=== PATIENT | female | born 1980 | race Caucasian/White ===

== ENCOUNTER 2021-11-07 10:35 | Emergency (ER) | payer SELFPAY ==
[~2021-11-07] VITALS: Ht 160 cm; Wt 97.5 kg
[2021-11-07] MEDS ORDERED: CLONIDINE HCL 0.3 MG TAB PO ONE (11:15)
[2021-11-07 11:28] LABS: BASOPHILS # (AUTO) 0.1 (0.0-0.1); BASOPHILS % 0.6 % (0.0-1.0); EOSINOPHILS # (AUTO) 0.2 (0.0-0.4); EOSINOPHILS % 1.6 % (0.0-6.0); HEMATOCRIT 45.8 % (34.2-44.1); LYMPHOCYTES % 21.5 % (18.0-39.1); MEAN CORPUSCULAR HGB CONC 32.8 g/dL (31-35); MEAN CORPUSCULAR VOLUME 85.6 fL (81-99); MONOCYTES # (AUTO) 0.8 (0.2-0.8); NEUTROPHILS # (AUTO) 9.9 (2.1-6.9); PLATELET COUNT 361 x10e3/uL (140-360); RED BLOOD COUNT 5.35 x10e6/uL (3.6-5.1)
[2021-11-07] MEDS ORDERED: HYDRALAZINE HCL 20 MG/ML VIAL IV ONE (11:30)
[2021-11-07 12:21] LABS: ALBUMIN 3.9 g/dL (3.5-5.0); ANION GAP 14.3 mmol/L (8-16); CALCIUM 9.5 mg/dL (8.4-10.2); CREATININE, SERUM 0.82 mg/dL (0.57-1.11); POTASSIUM 3.3 mmol/L (3.5-5.1)
[2021-11-07] MEDS ORDERED: LISINOPRIL10 MG PO (13:19)
[2021-11-07 13:29] VITALS: BP 186/94
== END 2021-11-07 13:36 | disposition home or self-care (01) ==
LOC: ER 10:42
DX: R07.9 Chest pain, unspecified (principal); E11.65 Type 2 diabetes mellitus with hyperglycemia; I10 Essential (primary) hypertension; Z85.42 Personal history of malignant neoplasm of other parts of uterus; F17.210 Nicotine dependence, cigarettes, uncomplicated
CPT/HCPCS: 36415; 71045; 80053; 84484; 85025; 93005; 99284; J0360

== ENCOUNTER 2024-12-26 01:56 | Inpatient (IN) | payer BC ==
[2024-12-26] VITALS (17 sets, daily range): BP systolic 106–155; BP diastolic 54–92; PULSE 80–112; RESP 9–21; TEMP 97.8–98.1; O2SAT 92–100
[~2024-12-26] VITALS: Ht 160 cm; Wt 84.5 kg
[~2024-12-26 01:56] MED LIST: LISINOPRIL10 MG PO
[2024-12-26] MEDS: ONDANSETRON HCL INJ 2MG/ML 2ML 2 MG/ML VIAL IV STA (02:40)
[2024-12-26] MEDS: KETOROLAC TROMETHAMINE 30 MG/ML VIAL IV STA ×2 (02:40→06:30)
[2024-12-26] MEDS: SODIUM CHLORIDE 0.9% 1000ML 1,000 ML IV STA (02:41)
[2024-12-26 02:56] LABS: BASOPHILS % 0.3 % (0.0-1.0); EOSINOPHILS # (AUTO) 0.1 (0.0-0.4); EOSINOPHILS % 0.9 % (0.0-6.0); HEMATOCRIT 36.4 % (34.2-44.1); HEMOGLOBIN 12.8 g/dL (12.0-16.0); LYMPHOCYTES # (AUTO) 1.5 (1.0-3.2); LYMPHOCYTES % 12.8 % (18.0-39.1); MEAN CORPUSCULAR HEMOGLOBIN 29.6 pg (28-32); MEAN CORPUSCULAR HGB CONC 35.2 g/dL (31-35); MEAN CORPUSCULAR VOLUME 84.1 fL (81-99); MONOCYTES # (AUTO) 0.7 (0.2-0.8); MONOCYTES % 5.9 % (4.4-11.3); NEUTROPHILS # (AUTO) 9.4 (2.1-6.9); NEUTROPHILS % 79.8 % (38.7-80.0); PLATELET COUNT 301 x10e3/uL (140-360); RED BLOOD COUNT 4.33 x10e6/uL (3.6-5.1); RED CELL DISTRIBUTION WIDTH 12.3 % (11.7-14.4); WHITE BLOOD COUNT 11.74 x10e3/uL (4.8-10.8)
[2024-12-26 02:58] LABS: BILIRUBIN,URINE NEGATIVE (NEGATIVE); CLARITY,URINE CLOUDY (CLEAR); COLOR,URINE YELLOW (YELLOW); GLUCOSE, URINE NEGATIVE (NEGATIVE); KETONES,URINE NEGATIVE (NEGATIVE); LEUKOCYTE ESTERASE ,URINE NEGATIVE (NEGATIVE); NITRITE,URINE NEGATIVE (NEGATIVE); PH,URINE 7.5 (5 - 7); PREGNANCY TEST, URINE NEGATIVE (NEGATIVE); PROTEIN,URINE DIPSTICK 1+ (NEGATIVE); URINE UROBILINOGEN 0.2 mg/dL (0.2 - 1)
[2024-12-26 03:15] LABS: BACTERIA,URINE MANY /HPF
[2024-12-26 03:16] LABS: EPITHELIAL CELLS,URINE MANY /LPF
[2024-12-26 03:19] LABS: ALBUMIN 3.8 g/dL (3.5-5.0); ALBUMIN/GLOBULIN RATIO 1.2 (0.8-2.0); ANION GAP 14.5 mmol/L (8-16); BILIRUBIN,TOTAL 1.4 mg/dL (0.2-1.2); CALCIUM 9.4 mg/dL (8.4-10.2); CREATININE, SERUM 1.3 mg/dL (0.57-1.11); POTASSIUM 3.5 mmol/L (3.5-5.1); TOTAL PROTEIN 7.1 g/dL (6.5-8.1)
[2024-12-26] MEDS: HYDRALAZINE HCL 20 MG/ML VIAL IV PRN (04:25)
[2024-12-26] MEDS: ONDANSETRON HCL INJ 2MG/ML 2ML 2 MG/ML VIAL IV PRN (04:25)
[2024-12-26] MEDS: Morphine 4mg INJECTION 4 MG/ML INJ IV PRN (04:25)
[2024-12-26] MEDS: TAMSULOSIN HCL 0.4 MG CAP PO STA (04:26)
[2024-12-26] MEDS: SODIUM CHLORIDE 0.9% 1000ML 1,000 ML IV SCH (04:26)
[2024-12-26] MEDS: LORAZEPAM INJ 2 MG/ML VIAL IV STA (05:01)
[2024-12-26] MEDS ORDERED: NITROGLYCERIN 0.1MG/HR PATCH TOP SCH ×2 (05:45→09:00)
[2024-12-26 06:33] LABS: TROPONIN I < 0.05 ng/mL (0.0-0.40)
[2024-12-26 07:17] LABS: CREATINE KINASE 63 IU/L (29-168)
[2024-12-26] MEDS ORDERED: HYDRALAZINE HCL 20 MG/ML VIAL IV PRN (10:45)
[2024-12-26] MEDS: CLONIDINE HCL 0.1 MG TAB PO SCH (12:51)
[2024-12-26] MEDS: LOSARTAN POTASSIUM 100 MG TAB PO SCH (12:52)
[2024-12-26] MEDS ORDERED: GABAPENTIN300 MG PO (12:57)
[2024-12-26] MEDS ORDERED: LOSARTAN POTAS100 MG PO (13:03)
[2024-12-26] MEDS ORDERED: CLONIDINE HCL0.2 MG PO (13:03)
[2024-12-26] MEDS ORDERED: CILOSTAZOL50 MG PO (13:03)
[2024-12-26] MEDS ORDERED: ROSUVASTATIN CA20 MG PO (13:03)
[2024-12-26] MEDS ORDERED: MOUNJARO10 MG/0.5 SC (13:05)
[2024-12-26] MEDS: KETOROLAC TROMETHAMINE 30 MG/ML VIAL IV PRN (14:02)
[2024-12-27] VITALS (7 sets, daily range): BP systolic 104–137; BP diastolic 65–75; PULSE 1–93; RESP 10–28; TEMP 97.7–98.3; O2SAT 96–100
[2024-12-27 07:07] LABS: BASOPHILS % 0.3 % (0.0-1.0); EOSINOPHILS # (AUTO) 0.1 (0.0-0.4); EOSINOPHILS % 1.4 % (0.0-6.0); HEMATOCRIT 35.8 % (34.2-44.1); HEMOGLOBIN 11.7 g/dL (12.0-16.0); LYMPHOCYTES # (AUTO) 2.1 (1.0-3.2); LYMPHOCYTES % 20.5 % (18.0-39.1); MEAN CORPUSCULAR HEMOGLOBIN 29.2 pg (28-32); MEAN CORPUSCULAR HGB CONC 32.7 g/dL (31-35); MEAN CORPUSCULAR VOLUME 89.3 fL (81-99); MONOCYTES # (AUTO) 0.7 (0.2-0.8); MONOCYTES % 6.8 % (4.4-11.3); NEUTROPHILS # (AUTO) 7.1 (2.1-6.9); NEUTROPHILS % 70.4 % (38.7-80.0); PLATELET COUNT 247 x10e3/uL (140-360); RED BLOOD COUNT 4.01 x10e6/uL (3.6-5.1); RED CELL DISTRIBUTION WIDTH 12.5 % (11.7-14.4); WHITE BLOOD COUNT 10.14 x10e3/uL (4.8-10.8)
[2024-12-27 07:43] LABS: ALBUMIN 2.9 g/dL (3.5-5.0); ALBUMIN/GLOBULIN RATIO 1.1 (0.8-2.0); ANION GAP 11.6 mmol/L (8-16); BILIRUBIN,TOTAL 0.9 mg/dL (0.2-1.2); CALCIUM 7.7 mg/dL (8.4-10.2); POTASSIUM 3.6 mmol/L (3.5-5.1); TOTAL PROTEIN 5.5 g/dL (6.5-8.1)
[2024-12-27] MEDS: GABAPENTIN 300 MG CAP PO SCH (09:19)
[2024-12-27] MEDS ORDERED: CILOSTAZOL 100 MG TAB PO SCH (16:30)
[2024-12-27] MEDS ORDERED: CRESTOR 10MG PO SCH (21:00)
== END 2024-12-27 14:52 | disposition home or self-care (01) | DRG 690 ==
LOC: ER 02:00 → MED/SURG3 03:53 → ERHOLD 06:22 → OBSVTOIN 09:25 → ICU 12:12
PROVIDERS: ADMIT Internal Medicine; ATTEND Internal Medicine
DX: N13.6 Pyonephrosis (principal); I12.9 Hypertensive chronic kidney disease with stage 1 through stage 4 chronic kidney disease, or unspecified chronic kidney disease; E11.22 Type 2 diabetes mellitus with diabetic chronic kidney disease; N18.30 Chronic kidney disease, stage 3 unspecified; E11.42 Type 2 diabetes mellitus with diabetic polyneuropathy; Z79.85 Long-term (current) use of injectable non-insulin antidiabetic drugs; R07.89 Other chest pain; R06.02 Shortness of breath; T40.2X5A Adverse effect of other opioids, initial encounter; Y92.230 Patient room in hospital as the place of occurrence of the external cause; F31.9 Bipolar disorder, unspecified; E78.00 Pure hypercholesterolemia, unspecified; E66.9 Obesity, unspecified; Z68.33 Body mass index [BMI] 33.0-33.9, adult; Z79.82 Long term (current) use of aspirin; Z85.42 Personal history of malignant neoplasm of other parts of uterus; Z90.710 Acquired absence of both cervix and uterus; Z79.899 Other long term (current) drug therapy; Z91.041 Radiographic dye allergy status; Z88.0 Allergy status to penicillin; Z88.5 Allergy status to narcotic agent
CPT/HCPCS: 36415; 74018; 74176; 80053; 81001; 81025; 82550; 82948; 83690; 84484; 85025; 87086; 93005; 93306; 99252; 99284; J0360; J1885; J2060; J2270; J2405; J7030